=== PATIENT | female | born 1990 | race Caucasian/White ===

== ENCOUNTER 2016-08-30 22:17 | Emergency (ER) | payer MEDICAID ==
[2016-08-31 00:33] LABS: BASOPHILS 0.4 % (0.0-2.0); EOSINOPHILS 2.8 % (0-7); HEMATOCRIT 34.7 % (36.0-48.0); HEMOGLOBIN 11.7 g/dL (12-16); LYMPHOCYTES 41.8 % (15-50); MCH 30.5 pg (26.0-34.0); MCHC 33.7 g/dL (31.0-37.0); MCV 90.4 fL (80.0-100.0); MONOCYTES 7.3 % (2-11); NEUTROPHILS 47.7 % (40-80); PLATELET COUNT 197 10x3/uL (130-400); RBC 3.84 10x6/uL (4.00-5.40); RDW 12.1 % (11.5-14.5); WBC 5.3 10x3/uL (4.8-10.8)
== END 2016-08-31 01:55 | disposition home or self-care (01) ==
LOC: D.ER 22:17
PROVIDERS: Physician Assistant Medical
DX: K08.89 Other specified disorders of teeth and supporting structures (principal); K05.10 Chronic gingivitis, plaque induced; F17.200 Nicotine dependence, unspecified, uncomplicated

== ENCOUNTER 2018-03-03 06:08 | Inpatient (IN) | payer MEDICAID ==
[~2018-03-03] VITALS: Ht 157.5 cm; Wt 62.1 kg
--- NOTE | ~2018-03-03 | DS ---
PATIENT:MARIBEL VAUGHN :89 MEDICAL RECORD: [id number] DISCHARGE SUMMARY ADMISSION DATE: 03/03/18 DISCHARGE DATE: 03/04/18 HOSPITAL COURSE: The patient was admitted on 03/03/2018. A 27-year-old G3, P2 at 39 weeks and 1 day, admitted for induction of labor per patient wishes. The patient was noted to be A positive, group B strep negative, and rubella immune. PAST MEDICAL HISTORY: The patient reported no significant past medical history. The patient reported having oral surgery at age 25. MEDICATIONS: Included vitamins and acetaminophen. FAMILY HISTORY: The patient reported no significant family history. SOCIAL HISTORY: The patient reported being a daily smoker both tobacco. PHYSICAL EXAMINATION: VITAL SIGNS: On initial assessment, vital signs were stable. The patient was normotensive and afebrile. LUNGS: Clear to auscultation. CARDIOVASCULAR: Regular rate and rhythm. PELVIC: Uterus was appropriately sized and nontender. EXTREMITIES: Lower extremities were free of Homans sign. wellbeing was reassuring with a category 1 tracing. Admit hemoglobin was noted to be 11.6, platelet count of 166. ASSESSMENT AND PLAN: At admission: 1. Term intrauterine at 39 weeks. 2. Induction of labor per patient wishes. 3. Positive for smoker. Plan at that time to proceed with Pitocin induction of labor with AROM when appropriate. Pitocin was begun. Artificial rupture of membranes was performed approximately 4 cm with clear fluid. The patient progressed to the second stage of labor and had normal spontaneous vaginal delivery over an intact perineum. Delivery note is as on the chart. The patient did well overnight on day #0, tolerating p.o. pain meds and general diet, ambulating and voiding freely. On the morning of postop day #1, the patient continued to do well. Vital signs were stable. The patient was afebrile. Hemoglobin was found to be stable. Uterus was infraumbilical and nontender. The patient reported only minimal lochia overnight, tolerating general diet, and p.o. pain meds. The patient was discharged home on day #1 with instructions to follow up in 4 weeks. TRANSINT:[id number] Voice Confirmation ID: [id number] DOCUMENT ID: [id number] DISCHARGE SUMMARY REPORT [id number] JOHANAMARIBEL ROBERSON, CHRISTIANO Elizalde MD at 1259 CC: [id number] DICTATION DATE: 04/16/1827 HEEL NAILING MACHINE OPERATOR: 04/16/18 1151 DIS IN 03/04/18 [place] [id number] [place] [address]
[2018-03-03] MEDS ORDERED: PRENATAL COMPLE1 TAB PO (07:02)
[2018-03-03] MEDS ORDERED: ACETAMINOPHEN500 M1 PO (07:02)
[2018-03-03 07:14] LABS: HEMATOCRIT 33.2 % (36.0-48.0); HEMOGLOBIN 11.6 g/dL (12-16); MCH 32.4 pg (26.0-34.0); MCHC 34.9 g/dL (31.0-37.0); MCV 92.7 fL (80.0-100.0); MEAN PLATELET VOLUME 10.7 fL (7.4-10.4); RBC 3.58 10x6/uL (4.00-5.40); RDW 12.6 % (11.5-14.5); WBC 12.7 10x3/uL (4.8-10.8)
[2018-03-03 07:20] VITALS: BP 102/58; Ht 157.5 cm; Wt 62.1 kg
[2018-03-03 08:04] LABS: APPEARANCE CLEAR (CLEAR); BILIRUBIN NEGATIVE (NEGATIVE); COLOR YELLOW (YELLOW); GLUCOSE NEGATIVE (NEGATIVE); KETONE NEGATIVE (NEGATIVE); NITRITE NEGATIVE (NEGATIVE); PROTEIN NEGATIVE (NEGATIVE); SPECIFIC GRAVITY 1.015 (1.005-1.020); UROBILINOGEN NORMAL (NORMAL)
[2018-03-03 19:05] VITALS: BP 93/67
[2018-03-03 22:30] VITALS: BP 96/63
[2018-03-04 06:16] LABS: RAPID PLASMA REAGIN Non Reactive (Non Reactive)
[2018-03-04 07:25] LABS: BASOPHILS 0.2 % (0-2); EOSINOPHILS 1.1 % (0-7); HEMATOCRIT 32.4 % (36.0-48.0); HEMOGLOBIN 11.2 g/dL (12-16); IMMATURE GRANULOCYTES 0.4 % (0-5); LYMPHOCYTES 15.2 % (15-50); MCH 32.3 pg (26.0-34.0); MCHC 34.6 g/dL (31.0-37.0); MCV 93.4 fL (80.0-100.0); MEAN PLATELET VOLUME 10.3 fL (7.4-10.4); MONOCYTES 5.8 % (2-11); NEUTROPHILS 77.3 % (40-80); PLATELET COUNT 131 10x3/uL (130-400); RBC 3.47 10x6/uL (4.00-5.40); RDW 12.8 % (11.5-14.5); WBC 12.5 10x3/uL (4.8-10.8)
[2018-03-04 07:29] VITALS: BP 92/55
== END 2018-03-04 15:38 | disposition home or self-care (01) | DRG 775 ==
LOC: D.LD 06:08 → D.SDCHOLD 06:08 → D.LD 06:34
PROVIDERS: Obstetrics & Gynecology
PROC: 10907ZC Drainage of Amniotic Fluid, Therapeutic from Products of Conception, Via Natural or Artificial Opening (ICD-10-PCS; principal; 2018-03-03)
PROC: 10E0XZZ Delivery of Products of Conception, External Approach (ICD-10-PCS; 2018-03-03)
PROC: 3E033VJ Introduction of Other Hormone into Peripheral Vein, Percutaneous Approach (ICD-10-PCS; 2018-03-03)
DX: O99.334 Smoking (tobacco) complicating childbirth (principal); Z3A.39 39 weeks gestation of pregnancy; Z37.0 Single live birth

== ENCOUNTER 2018-05-12 06:15 | Day surgery (SDC) | payer MEDICAID ==
[2018-05-11 16:07] LABS: HEMATOCRIT 32.9 % (36.0-48.0); HEMOGLOBIN 11.5 g/dL (12-16); LYMPHOCYTES 40.2 % (15-50); MCH 30.9 pg (26.0-34.0); MCV 88.4 fL (80.0-100.0); MEAN PLATELET VOLUME 9.4 fL (7.4-10.4); NEUTROPHILS 54.3 % (40-80); RBC 3.72 10x6/uL (4.00-5.40); RDW 11.8 % (11.5-14.5)
[2018-05-11 16:08] LABS: PLATELET COUNT 214 10x3/uL (130-400)
[2018-05-11 16:11] LABS: HCG URINE NEGATIVE (NEGATIVE)
[~2018-05-12] VITALS: Ht 157.5 cm; Wt 59.9 kg
--- NOTE | ~2018-05-12 | OP ---
PATIENT NAME: MARIBEL VAUGHN MEDICAL RECORD: [id number] :89 [facility] DATE: SURGEON: CHRISTIANO YIN MD DATE OF OPERATION: 05/12/2018 PREOPERATIVE DIAGNOSIS: Multiparity, patient desires permanent sterility. POSTOPERATIVE DIAGNOSES: Multiparity, patient desires permanent sterility. Uterus with adenomyosis. PROCEDURE: Laparoscopic tubal ligation via bipolar cautery. SURGEON: Christiano Yin MD ESTIMATED BLOOD LOSS: Minimal. INTRAVENOUS FLUIDS: Per anesthesia record. ANESTHESIA: General endotracheal. SPECIMENS: None. COMPLICATIONS: None apparent. FINDINGS: 1. Grossly normal-appearing fallopian tubes and ovaries. 2. Uterus consistency consistent with adenomyosis. PROCEDURE: The patient was taken to the operating room, where general anesthesia was achieved without difficulty. The patient was prepped and draped in normal sterile fashion in the dorsal lithotomy position in the [facility]. Following prep and drape, the bladder was drained of approximately 100 cc of clear yellow urine. A sponge stick was placed in the vagina for uterine elevation. At this point, a 5-mm incision was made infraumbilically and a 5-mm bladeless trocar was used to enter the intraperitoneal space under direct visualization of the laparoscope. The introducer was then removed and the patient was insufflated with an opening pressure of less than 10 mmHg. Intraperitoneal placement was then confirmed with the scope and a second 5-mm port was placed in the midline approximately 5 cm above the pubic symphysis. This was done under direct visualization of the laparoscope. The fallopian tubes were identified bilaterally and the midsection of the tubes bilaterally was completely cauterized using the bipolar Kleppinger. Good hemostasis was noted from both surgical sites. Following the tubal, the patient was desufflated and no evidence of bleeding was noted from either the surgical sites. The ports were then removed and the skin was repaired with 3-0 Vicryl in an interrupted fashion. The patient tolerated the procedure well, was transferred to postanesthesia recovery stable without incident. TRANSINT:[id number] Voice Confirmation ID: [id number] DOCUMENT ID: [id number] OPERATIVE REPORT [id number] MARIBEL VAUGHN CHRISTIANO YIN MD at 1902 CC: [id number] DICTATION DATE: 06/04/18 1415 PHYSICIAN INTERNIST: 06/04/18 1510 [facility] 05/12/18 [place] [id number] [place] [id number]
[~2018-05-12 06:15] MED LIST: ACETAMINOPHEN500 M1 PO; PRENATAL COMPLE1 TAB PO
[2018-05-12 07:02] VITALS: BP 104/57; Ht 157.5 cm; Wt 59.9 kg
[2018-05-12 07:11] LABS: HCG URINE NEGATIVE (NEGATIVE)
== END 2018-05-12 11:20 | disposition home or self-care (01) ==
LOC: D.OPS 06:15 → D.PAN 08:00 → D.OPS 11:20
PROVIDERS: Obstetrics & Gynecology
DX: Z30.2 Encounter for sterilization (principal); N80.0 Endometriosis of uterus; Z01.812 Encounter for preprocedural laboratory examination

== ENCOUNTER 2019-03-21 04:41 | Emergency (ER) | payer MEDICAID ==
[~2019-03-21] VITALS: Ht 157.5 cm; Wt 56.8 kg
[2019-03-21 04:45] VITALS: Ht 157.5 cm; Wt 56.8 kg
[2019-03-21] MEDS ORDERED: NAPROSYN500 MG PO (05:37)
[2019-03-21] MEDS ORDERED: CLEOCIN HCL300 MG PO (05:37)
[2019-03-21 05:58] VITALS: BP 109/69
== END 2019-03-21 05:58 | disposition home or self-care (01) ==
LOC: D.ER 04:41
DX: I88.9 Nonspecific lymphadenitis, unspecified (principal); L03.312 Cellulitis of back [any part except buttock and flank]; F17.210 Nicotine dependence, cigarettes, uncomplicated